=== PATIENT | female | born 1965 | race Two or more races ===

== ENCOUNTER 2018-11-17 06:35 | Day surgery (SDC) | payer OTHER ==
[~2018-11-17 06:35] MED LIST: ABATINEX680 MG PO; ALBUTEROL0.63 MG/3 IH; ATIVAN2 M1 PO; BIOTIN1000 MCG PO; CLARITIN10 M1; ESTAZOLAM2 MG PO; FLUTICASONE PO; HYZAAR 50-12.51 EACH PO; LASIX40 MG; PROBIOTIC1 EAC3 PO; PROSAC PO; SELENIUM200 MC2 PO; SINGULAIR10 MG PO; TRAZODONE HCL50 MG PO; WELLBUTRIN SR150 MG PO; [UNRECOGNIZED DRUG - OTHER] PO
[2018-11-17] MEDS ORDERED: PERCOCET 5-3251 EACH PO (08:55)
[2018-11-17] MEDS ORDERED: COLACE100 MG PO (08:55)
== END 2018-11-17 17:35 | disposition home or self-care (01) ==
LOC: CIR.AMB 06:35
DX: K64.8 Other hemorrhoids (principal)

== ENCOUNTER 2023-12-16 07:43 | Day surgery (SDC) | payer OTHER ==
[2023-12-09 11:20] LABS: URINE APPEARANCE Turbid; URINE BILIRRUBIN Negative (NEGATIVE); URINE BLOOD Negative; URINE COLOR Yellow; URINE GLUCOSE Negative (NEGATIVE); URINE LEUKOCYTE Negative; URINE NITRATE Negative; URINE PROTEIN Negative (NEGATIVE); URINE UROBILINOGEN 0.2 E.U./dl
[2023-12-09 11:21] LABS: HEMOGLOBIN 13.2 g/dL (12.0-15.00); MEAN CELL VOLUME 79.1 fL (80.00-100.00); MEAN CORPUSCULAR HEMOGLOBIN 26.8 pg (27.00-32.0); MEAN CORPUSCULAR HGB CONC 33.8 g/dl (32.0-36.0); PLATELET COUNT 330 K/uL (150-450); RED BLOOD COUNT 4.93 M/uL (4.00-6.00); RED CELL DISTRIBUTION WIDTH 16.4 % (11.5-14.5)
[2023-12-09 11:23] LABS: URINE BACTERIA 1564.8 uL (0.0-1933); URINE EPITHELIAL CELLS 29.3 uL (0.0-38.8); URINE RBC 101.5 uL (0.0-20.8); URINE WBC 6.3 uL (0.0-23.2)
[2023-12-09 11:33] LABS: URINE YEAST NEGATIVE /hpf
[2023-12-09 11:49] LABS: INR 0.98; PARTIAL THROMBOPLASTIN TIME 27.7 SECONDS (22.0-34.0); PROTHROMBIN TIME 10.3 SECONDS (9.0-11.5)
[2023-12-09 11:53] LABS: ALBUMIN 3.7 gm/dL (3.4-5.0); BILIRUBIN TOTAL 0.69 mg/dL (0.3-1.2); CALCIUM 9.1 mg/dL (8.5-10.1); CREATININE SERUM 0.6 mg/dL (0.55-1.02); GFR 103.04; GLOBULINA 3.5 G/DL (2.4-3.5); PHOSPHOROUS 3.6 mg/dL (2.5-4.9); POTASSIUM 4.09 mEq/L (3.5-5.1); TOTAL PROTEIN 7.2 gm/dL (6.4-8.2)
[~2023-12-16 07:43] MED LIST changes: +COLACE100 MG PO; +PERCOCET 5-3251 EACH PO
[2023-12-16] MEDS ORDERED: LIDOCAINE HCL 1%/EPINEPHRINE 20ML VIAL IJ ONE (13:30)
[2023-12-16] MEDS ORDERED: levoFLOXacin IN DEXTROSE 5 % 5 MG/ML PIGGYBAG IV ONE (13:30)
[2023-12-16] MEDS ORDERED: CHLORHEXIDINE GLUCONATE 120 ML BOTTLE TOP ONE (13:30)
[2023-12-16] MEDS ORDERED: BUPIVACAINE HCL/PF 0.25% 30ML VIAL InF ONE (13:30)
[2023-12-16] MEDS ORDERED: METRONIDAZOLE/SODIUM CHLORIDE 500 MG/100 ML PIGGYBACK IV ONE (13:30)
[2023-12-16] MEDS ORDERED: HEMOSTATIC MATRIX 1 KIT KIT TOP ONE (13:30)
[2023-12-16] MEDS ORDERED: TRAM1TAB98 PO (13:40)
[2023-12-16] MEDS ORDERED: COLACE100 MG PO (13:40)
== END 2023-12-16 19:15 | disposition home or self-care (01) ==
LOC: CIR.AMB 07:43
PROVIDERS: ATTEND Surgery
DX: D12.9 Benign neoplasm of anus and anal canal (principal); D37.5 Neoplasm of uncertain behavior of rectum; E11.9 Type 2 diabetes mellitus without complications; I10 Essential (primary) hypertension; Z88.6 Allergy status to analgesic agent; Z88.0 Allergy status to penicillin; Z88.8 Allergy status to other drugs, medicaments and biological substances; J45.909 Unspecified asthma, uncomplicated; F41.9 Anxiety disorder, unspecified